=== PATIENT | female | born 1975 | race Caucasian/White ===

== ENCOUNTER 2018-11-29 07:14 | Day surgery (SDC) | payer BC ==
[~2018-11-29] VITALS: Ht 162.6 cm; Wt 75.0 kg
[~2018-11-29 07:14] MED LIST: AMOX500 PO; BISA5EC PO; CLIN300 PO; CONEST1.25 PO; DOCU100 PO; DOXY100 PO; DULO30 PO; Estradiol2 MG PO; FAMO20 PO; GABA400 PO; HYDACE10B PO; HYDACE5 PO; HYDMOR4 PO; LEVFLO250 PO; MAGCIT300 PO; METR500 PO; ONDA4 PO; OXYACE5T PO; OXYC10TA19 PO; OXYC5 PO; PHENA200 PO; PROM25 PO; PROM25S PR; Percocet 10-321 EACH PO; Percocet 5-3251 EACH PO; RANI150 PO; SENNA-S LAXATI1 EACH PO; SUMA25 PO; TOPI25 PO; TRAM50 PO; VITAMIN B-121000 MCG PO; Valium5 MG PO; [UNRECOGNIZED DRUG - OTHER]
== END 2018-11-29 09:15 | disposition home or self-care (01) ==
LOC: ORSCSDS 07:14
PROVIDERS: Internal Medicine Gastroenterology
PROC: 0DB68ZX Excision of Stomach, Via Natural or Artificial Opening Endoscopic, Diagnostic (ICD-10-PCS; principal; 2018-11-29 08:30)
PROC: 0DB98ZX Excision of Duodenum, Via Natural or Artificial Opening Endoscopic, Diagnostic (ICD-10-PCS; principal; 2018-11-29 08:30)
DX: R10.9 Unspecified abdominal pain (principal); R11.0 Nausea; F32.9 Major depressive disorder, single episode, unspecified; D64.9 Anemia, unspecified; Z79.899 Other long term (current) drug therapy
CPT/HCPCS: 88305; 88342; J2704; J7120

== ENCOUNTER 2022-03-17 16:10 | Inpatient (IN) | payer BC ==
[~2022-03-17] VITALS: Ht 162.6 cm; Wt 85.0 kg
[~2022-03-17 16:10] MED LIST changes: +Cyclobenzaprine5 MG PO
[2022-03-17 16:53] LABS: BASOPHILS ABSOLUTE AUTO 0.02 K/mm3 (0.00-0.23); BASOPHILS PERCENT AUTO 0 % (0-2); EOSINOPHILS ABSOLUTE AUTO 0.01 K/mm3 (0.00-0.68); EOSINOPHILS PERCENT AUTO 0 % (0-6); Hematocrit 37.6 % (33.0-51.0); Hemoglobin 12.4 g/dL (11.5-16.0); IMMATURE GRAN ABSOLUTE AUTO 0.04 K/mm3 (0.00-0.10); IMMATURE GRAN PERCENT AUTO 0 % (0-1); LYMPHOCYTES ABSOLUTE AUTO 3.28 K/mm3 (0.84-5.20); LYMPHOCYTES PERCENT AUTO 25 % (21-46); MONOCYTES ABSOLUTE AUTO 0.84 K/mm3 (0.16-1.47); MONOCYTES PERCENT AUTO 7 % (4-13); Mean Corpuscular HGB 28.4 pg (26.0-34.0); Mean Corpuscular Volume 86 fL (80-100); Mean Platelet Volume 8.8 fL (9.1-12.4); NEUTROPHILS ABSOLUTE AUTO 8.74 K/mm3 (1.96-9.15); NEUTROPHILS PERCENT AUTO 68 % (41-73); Platelet Count 321 K/mm3 (150-400); RDW Coefficient Variation 12.9 % (11.7-14.2); RDW Standard Deviation 40.5 fL (35.1-46.3); Red Blood Cell Count 4.36 M/mm3 (3.80-5.20); White Blood Cell Count 12.93 K/mm3 (4.00-11.30)
[2022-03-17 17:11] LABS: Source, Urine Clean Catch
[2022-03-17 17:11] LABS: Albumin, Blood 3.6 g/dL (3.4-5.0); Albumin/Globulin Ratio 0.8 (0.8-1.8); Bilirubin, Total 0.2 mg/dL (0.1-1.0); Calcium, Blood 10.1 mg/dL (8.5-10.1); Creatinine, Blood 0.85 mg/dL (0.40-1.00); Globulin, Blood 4.6 g/dL (2.2-4.0); Potassium, Blood 3.7 mmol/L (3.5-5.5); Total Protein, Blood 8.2 g/dL (6.4-8.2)
[2022-03-17 17:23] LABS: Bilirubin, Urine Neg (Neg); Blood, Urine 4+ (Neg); Color, Urine Yellow (P-Yellow); Glucose Qualitative, Urine Neg (Neg); Ketones, Urine Neg (Neg); Leukocyte Esterase, Urine Neg (Neg); Nitrite, Urine Neg (Neg); Protein, Urine Neg (Neg); Urobilinogen, Urine NORM (Normal)
[2022-03-17 18:07] LABS: Appearance, Urine Hazy (Clear); Bacteria Mod /hpf; Squamous Epithelial Cells Rare /hpf (Few); White Blood Cells, Urine 0-2 /hpf (0-5)
--- NOTE | 2022-03-18 04:14 | NUR ---
PT ARRIVED ON UNIT EARLIER IN THE MORNING. ADMITTED FOR RECTAL BLEEDING. VITAL SIGNS WNL. NS RUNNING @ 150 MLS/HOUR. IV IN RIGHT AC INFUSING WITHOUT DIFFICULTY. SKIN ASSESSMENT UNREMARKABLE. STOOL SAMPLE COLLECTED AND SENT TO LAB AROUND 034. PATIENT AOX4. INDEPENDENT IN ROOM. ON ROOM AIR. COLONOSCOPY SCHEDULED FOR SUNDAY. PATIENT CURRENTLY ON CLEAR LIQUID DIET. PAIN ADEQUATELY MANAGED ON CURRENT MEDICATION REGIMEN OF FENTANYL AND TRAMADOL. CALL LIGHT LEFT WITHIN REACH.
[2022-03-18 04:42] LABS: BASOPHILS ABSOLUTE AUTO 0.02 K/mm3 (0.00-0.23); BASOPHILS PERCENT AUTO 0 % (0-2); EOSINOPHILS ABSOLUTE AUTO 0.01 K/mm3 (0.00-0.68); EOSINOPHILS PERCENT AUTO 0 % (0-6); Hemoglobin 10.6 g/dL (11.5-16.0); IMMATURE GRAN ABSOLUTE AUTO 0.02 K/mm3 (0.00-0.10); IMMATURE GRAN PERCENT AUTO 0 % (0-1); LYMPHOCYTES ABSOLUTE AUTO 3.34 K/mm3 (0.84-5.20); LYMPHOCYTES PERCENT AUTO 30 % (21-46); MONOCYTES ABSOLUTE AUTO 0.67 K/mm3 (0.16-1.47); MONOCYTES PERCENT AUTO 6 % (4-13); Mean Corpuscular HGB 28.6 pg (26.0-34.0); Mean Corpuscular HGB Conc 33.1 g/dL (31.5-36.5); Mean Corpuscular Volume 86 fL (80-100); Mean Platelet Volume 8.7 fL (9.1-12.4); NEUTROPHILS ABSOLUTE AUTO 6.91 K/mm3 (1.96-9.15); NEUTROPHILS PERCENT AUTO 63 % (41-73); Platelet Count 255 K/mm3 (150-400); RDW Coefficient Variation 13.2 % (11.7-14.2); RDW Standard Deviation 41.2 fL (35.1-46.3); Red Blood Cell Count 3.71 M/mm3 (3.80-5.20); White Blood Cell Count 10.97 K/mm3 (4.00-11.30)
[2022-03-18 05:59] LABS: Adenovirus F 40/41 Not Detected (NOT DETECT); Astrovirus Not Detected (NOT DETECT); Campylobacter Sp Not Detected (NOT DETECT); Cryptosporidium Not Detected (NOT DETECT); Cyclospora Cayetanensis Not Detected (NOT DETECT); E. Coli O157 Not Detected (NOT DETECT); Entamoeba Histolytica Not Detected (NOT DETECT); Enteroaggregative E. coli-EAEC Not Detected (NOT DETECT); Enteropathogenic E. coli-EPEC Not Detected (NOT DETECT); Enterotoxigenic E. coli-ETEC Not Detected (NOT DETECT); Giardia Lamblia Not Detected (NOT DETECT); Norovirus GI/GII Not Detected (NOT DETECT); Plesiomonas Shigelloides Not Detected (NOT DETECT); Rotavirus A Not Detected (NOT DETECT); Salmonella Sp Not Detected (NOT DETECT); Sapovirus Not Detected (NOT DETECT); Shiga Toxin-prod E. coli-STEC Not Detected (NOT DETECT); Shigella/Enteroin E. coli-EIEC Not Detected (NOT DETECT); Vibrio Cholerae Not Detected (NOT DETECT); Vibrio Sp Not Detected (NOT DETECT); Yersinia Enterocolitica Not Detected (NOT DETECT)
[2022-03-18 06:22] LABS: Albumin/Globulin Ratio 0.8 (0.8-1.8); Bilirubin, Total 0.2 mg/dL (0.1-1.0); Bun/Creatinine Ratio 11.9 (12.0-20.0); Calcium, Blood 8.6 mg/dL (8.5-10.1); Creatinine, Blood 0.84 mg/dL (0.40-1.00); Globulin, Blood 3.6 g/dL (2.2-4.0); Potassium, Blood 3.9 mmol/L (3.5-5.5); Total Protein, Blood 6.6 g/dL (6.4-8.2)
[2022-03-18 12:30] LABS: Hematocrit 30.6 % (33.0-51.0); Hemoglobin 10.2 g/dL (11.5-16.0)
[2022-03-18 16:35] LABS: Anti-Xa UFH, PHA Monitoring <0.10 IU/mL; International Normalized Ratio 1.03; Prothrombin Time Results 10.8 Sec (9.7-11.5)
--- NOTE | 2022-03-18 18:41 | NUR ---
SHIFT SUMMARY: pT A&OX4, PLEASANT AND ABLE TO VOICE NEEDS. PT HAD MILD CRAMPING AND ABDOMENIAL PAIN TO LLQ. PT HAS DILAUDID Q3H PRN IV PAIN MEDICATION TO AID IN PAIN MANAGEMENT. PT RECVEIVED IV ABX W/O S/S OF ADVERSE REACTIONS. PT STARTED BOWEL PREP AT 1800, TOLERATING WELL. DR. MULTANI ORDER LABS DRAWS AND NEW ORDERS OF HEPARIN IV ORDERED AND STARTED AT 1800, STOP HEPARIN AT 0200 BEFORE COLONOSCOPY IN THE MORNING. PT FAMILY AT BEDSIDE THROUGHOUT THE SHIFT. PT IN BED WITH CALL LIGHT WITHIN REACH.
[2022-03-18 21:24] LABS: Hematocrit 30.6 % (33.0-51.0); Hemoglobin 10.1 g/dL (11.5-16.0)
--- NOTE | 2022-03-19 01:23 | NUR ---
TELE WAS ORDERED FOR PT AFTER ORDER FOR ZOFRAN WAS PUT IN. PT DID NOT WANT THE TELE PUT ON SO IT WAS SENT BACK TO PCU.
--- NOTE | 2022-03-19 01:27 | NUR ---
PT HAS HEPARIN RUNNING UNTIL 0200 AND HAS A MIDNIGHT DOSE OF IV ABX BUT ONLY HAS 1 IV. SHE REFUSED A SECOND IV SO ABX WILL BE PUSHED BACK TO 0200 WHEN HEPARIN IS DC'D.
[2022-03-19 04:59] LABS: BASOPHILS ABSOLUTE AUTO 0.02 K/mm3 (0.00-0.23); BASOPHILS PERCENT AUTO 0 % (0-2); EOSINOPHILS ABSOLUTE AUTO 0.03 K/mm3 (0.00-0.68); EOSINOPHILS PERCENT AUTO 0 % (0-6); Hematocrit 33.4 % (33.0-51.0); Hemoglobin 10.8 g/dL (11.5-16.0); IMMATURE GRAN ABSOLUTE AUTO 0.04 K/mm3 (0.00-0.10); IMMATURE GRAN PERCENT AUTO 0 % (0-1); LYMPHOCYTES ABSOLUTE AUTO 3.49 K/mm3 (0.84-5.20); LYMPHOCYTES PERCENT AUTO 28 % (21-46); MONOCYTES ABSOLUTE AUTO 0.84 K/mm3 (0.16-1.47); MONOCYTES PERCENT AUTO 7 % (4-13); Mean Corpuscular HGB 28.7 pg (26.0-34.0); Mean Corpuscular HGB Conc 32.3 g/dL (31.5-36.5); Mean Corpuscular Volume 89 fL (80-100); Mean Platelet Volume 8.8 fL (9.1-12.4); NEUTROPHILS ABSOLUTE AUTO 8.16 K/mm3 (1.96-9.15); NEUTROPHILS PERCENT AUTO 65 % (41-73); Platelet Count 272 K/mm3 (150-400); RDW Coefficient Variation 13.2 % (11.7-14.2); RDW Standard Deviation 43.3 fL (35.1-46.3); Red Blood Cell Count 3.76 M/mm3 (3.80-5.20); White Blood Cell Count 12.58 K/mm3 (4.00-11.30)
--- NOTE | 2022-03-19 05:03 | NUR ---
SHIFT SUMMARY 46 YR F ADMITTED FOR COLITIS. FULL CODE. NO ACUTE CHANGES THIS SHIFT. AT 0200 HEPARIN DRIP WAS DC'D AND BOWEL PREP RESUMED. MIDNIGHT IV ABX ALSO GIVEN AT THIS TIME PT ONLY HAS ONE IV AND REFUSED ANOTHER. COLONOSCOPY SCHEDULED FOR 0900 THIS A.M. PT IS FULLY INDEPENDANT IN ROOM AND SHOWERED THIS MORNING. SHE IS COMPLIANT WITH BOWEL PREP. NO BLOOD NOTED IN STOOL THIS SHIFT AND H&H HAVE REMAINED THE SAME.
[2022-03-19 05:38] LABS: Bun/Creatinine Ratio 9.4 (12.0-20.0); Calcium, Blood 8.5 mg/dL (8.5-10.1); Creatinine, Blood 0.85 mg/dL (0.40-1.00); Potassium, Blood 3.5 mmol/L (3.5-5.5)
--- NOTE | 2022-03-19 08:50 | NUR ---
PT BROUGHT FROM FLOOR TO DAY SURGERY FOR PROCEDURE. PT CELL PHONE AND GLASSES LEFT IN PT ROOM ON MEDICAL FLOOR FOR SAFEKEEPING.
--- NOTE | 2022-03-19 09:42 | NUR ---
03/19/22 0942 Angeles Barry HISTORY, CHART, MEDICATIONS AND ALLERGIES REVIEWED BEFORE START OF PROCEDURE. PATIENT CONFIRMS NPO STATUS AND AGREES WITH SCHEDULED PROCEDURE. 3-LEAD EKG REVIEWED WITH PHYSICIAN PRIOR TO START OF PROCEDURE. MONITOR INTACT WITH CONTINUOUS PULSE OXIMETRY,CAPNOGRAPHY, 3-LEAD EKG, INTERMITTENT BP. SUPPLEMENTAL O2 TO BE TITRATED THROUGHOUT PROCEDURE TO MAINTAIN O2 SATURATION ABOVE 90%. PATIENT DETERMINED TO BE ASA APPROPRIATE FOR PROPOFOL SEDATION PRIOR TO START OF PROCEDURE BY
--- NOTE | 2022-03-19 10:06 | NUR ---
1847 TO STEP, DR MCCONNELL TALKS WITH PT AND SPOUSE
[2022-03-19 15:34] LABS: Hematocrit 29.3 % (33.0-51.0); Hemoglobin 9.6 g/dL (11.5-16.0)
[2022-03-19] MEDS ORDERED: ELIQUIS5 M2 PO ×2 (16:12→16:13)
--- NOTE | 2022-03-19 18:18 | NUR ---
DISCHARGE SUMMARY: PT AND SPOUSE PRESENT EDUCATED ON DISCHARGE INSTRUCTIONS AND MEDICATIONS. ACCORDING TO PT SHE ALREADY HAS APPT WITH PCP NEXT WEEK. PT GIVEN [employer] REBATE CARD AND EDUCATED ON HOW TO USE. PT VU. ASSISTED PT WITH PACKING UP BELONGINGS. PT AMBULATED TO POV WITH .
== END 2022-03-19 16:54 | disposition home or self-care (01) | DRG 393 ==
LOC: ER 16:10 → MEDS 16:11
PROVIDERS: Emergency Medicine; Family Medicine; Hospitalist; Internal Medicine Gastroenterology; Pharmacist; Physician Assistant; Surgery; ADMIT Internal Medicine
PROC: 0DBL8ZX Excision of Transverse Colon, Via Natural or Artificial Opening Endoscopic, Diagnostic (ICD-10-PCS; 2022-03-19)
PROC: 0DBN8ZX Excision of Sigmoid Colon, Via Natural or Artificial Opening Endoscopic, Diagnostic (ICD-10-PCS; 2022-03-19)
PROC: 0DBP8ZX Excision of Rectum, Via Natural or Artificial Opening Endoscopic, Diagnostic (ICD-10-PCS; 2022-03-19)
PROC: 0DBM8ZX Excision of Descending Colon, Via Natural or Artificial Opening Endoscopic, Diagnostic (ICD-10-PCS; 2022-03-19)
PROC: 0DBH8ZX Excision of Cecum, Via Natural or Artificial Opening Endoscopic, Diagnostic (ICD-10-PCS; 2022-03-19)
PROC: 0DBK8ZX Excision of Ascending Colon, Via Natural or Artificial Opening Endoscopic, Diagnostic (ICD-10-PCS; principal; 2022-03-19 09:00)
DX: K55.9 Vascular disorder of intestine, unspecified (principal); I81 Portal vein thrombosis; D68.69 Other thrombophilia; G89.29 Other chronic pain; G62.9 Polyneuropathy, unspecified; K64.4 Residual hemorrhoidal skin tags; R10.9 Unspecified abdominal pain; M54.9 Dorsalgia, unspecified; G43.909 Migraine, unspecified, not intractable, without status migrainosus; Z90.49 Acquired absence of other specified parts of digestive tract; Z90.710 Acquired absence of both cervix and uterus; Z90.722 Acquired absence of ovaries, bilateral; Z88.0 Allergy status to penicillin; Z88.6 Allergy status to analgesic agent; Z88.8 Allergy status to other drugs, medicaments and biological substances; Z98.51 Tubal ligation status; Z90.89 Acquired absence of other organs
CPT/HCPCS: 36415; 74177; 80048; 80053; 81001; 81240; 81241; 81270; 83605; 84703; 85014; 85018; 85025; 85300; 85303; 85306; 85520; 85610; 85730; 86147; 87086; 87507; 88305; 96374-59; 96375; 96376; 99285-25; A9270; G0378; J1170; J1644; J1956; J2405; J2704; J3010; J7030; Q9967